=== PATIENT | female | born 2000 | race Caucasian/White ===

== ENCOUNTER 2018-06-13 18:26 | Emergency (ER) | payer MEDICAID ==
[~2018-06-13] VITALS: Ht 162.6 cm; Wt 89.3 kg
[2018-06-13 18:56] VITALS: BP 120/75
--- NOTE | 2018-06-13 19:47 | NUR ---
pt is resting quietly on gurney, waiting to be evaluated
[2018-06-13] MEDS ORDERED: AZIT250T2 PO (20:42)
[2018-06-13] MEDS ORDERED: AZIT250T PO (20:56)
== END 2018-06-13 21:06 | disposition home or self-care (01) ==
LOC: ER 18:27
DX: R05 Cough (principal); J02.9 Acute pharyngitis, unspecified; R20.8 Other disturbances of skin sensation; Z88.5 Allergy status to narcotic agent; Z91.040 Latex allergy status; Z79.2 Long term (current) use of antibiotics
CPT/HCPCS: 99283

== ENCOUNTER 2019-04-26 14:17 | Emergency (ER) | payer MEDICAID ==
[~2019-04-26] VITALS: Ht 162.6 cm; Wt 95.0 kg
[~2019-04-26 14:17] MED LIST: AZIT250T PO
[2019-04-26 14:45] VITALS: BP 128/88
[2019-04-26] MEDS ORDERED: ONDA4TAB6 PO (15:58)
[2019-04-26] MEDS ORDERED: GUAI600T45 PO (15:58)
== END 2019-04-26 16:11 | disposition home or self-care (01) ==
LOC: ER 14:18
DX: J06.9 Acute upper respiratory infection, unspecified (principal); Z88.5 Allergy status to narcotic agent; Z91.040 Latex allergy status
CPT/HCPCS: 99283

== ENCOUNTER 2025-03-01 22:41 | Emergency (ER) | payer MEDICAID ==
[~2025-03-01] VITALS: Ht 162.6 cm; Wt 76.4 kg
[~2025-03-01 22:41] MED LIST changes: +GUAI600T45 PO; +ONDA4TAB6 PO
[2025-03-01 22:42] VITALS: BP 136/94; PULSE 84; RESP 16; TEMP 98; O2SAT 99
--- NOTE | 2025-03-01 23:20 | Physician Documentation ---
History of Present Illness ~ Chief Complaint: Sore Throat Stated Complaint: THROAT PAIN Time Seen by MD: 23:19 HPI Patient presents to the emergency room with pain and swelling to her throat. She was diagnosed with strep throat in his taking antibiotics. Last time she to ok ibuprofen was two days ago Medication Reconciliation Allergies: Coded Allergies: codeine (Unverified Allergy, Unknown, 03/01/25) latex (Unverified Allergy, Unknown, 03/01/25) Scheduled Azithromycin (Zithromax), 1 DOSPAK PO UD Guaifenesin (Mucinex), 1 TAB PO Q12H Ondansetron Hcl (Zofran), 1 TAB PO Q6H Prednisone* (Prednisone*), 1 TAB PO DAILY Past Medical History Past Medical History: No Pertinent History Past Surgical History: noncontributory Drug Use: none Lives with: Family Occupation: employed Review of Systems ROS All review of systems negative except as per HPI Physical Exam Vital Signs: Temperature: 98.0, Source: Oral, Heart Rate: 84, Respiratory Rate: 16, BP: 136/94, Pulse Oximetry: 99, Weight: 76.360 Oxygen Flow Rate: 0 Physical Exam General: Patient is awake, alert, oriented x4 in no acute distress and well appearing.~ Head: Normocephalic and atraumatic. Eyes: Conjunctival normal. EOMI. PERRL. ENT: Mucous membranes moist. Pharynx widely patent with no asymmetry. No appreciable exudates. Maintaining secretions. No hot potato voice Neck: Supple, trachea is midline. Chest: Clear to auscultation bilaterally without rales, rhonchi, or wheezes. There is no accessory muscle use or retractions. Cardiac: RRR without murmurs, gallops, or rubs. Abd: Soft, nondistended, nontender, with normoactive bowel sounds. No guarding, rebound, or rigidity. Progress Results/Orders Results/Orders Orders - CISCO MARTINS MD Prednisone Tablet (Prednisone Tablet) (03/01/25 23:25) Ibuprofen Tablet (Motrin Tablet) (03/01/25 23:25) Acetaminophen 325mg Tablet (Tylenol Tabl (03/01/25 23:25) Vital Signs 03/01/25 22:42 Temp 98.0 Pulse 84 Resp 16 B/P (MAP) 136/94 Pulse Ox 99 O2 Flow Rate 0 Medical Decision Making Findings Patient presents to the emergency room for evaluation of sore throat as per HPI. Differentials include but are not limited to strep throat, peritonsillar abscess, retropharyngeal abscess. Physical exam is reassuring he had not feel imaging is necessary. I do not feel patient has any danger of airway obstruction all per void small course of steroids. Departure Disposition: HOME / SELF CARE / HOMELESS Impression: Primary Impression: Irritation of pharynx Condition: Stable Discharge Instructions: Pharyngitis Referrals: NO PRIMARY CARE PROVIDER (PCP) Prescriptions Prednisone* (Prednisone*) 20 Mg Tablet 1 TAB PO DAILY for 5 Days, #5 TAB Prov: CISCO MARTINS MD 03/01/25 Signature Scribe Signature: No scribe Attestation: The note accurately reflects work and decisions made by me.Cisco Martins MD 03/01/25 23:25 CISCO MARTINS MD Mar 01, 2025 23:20
[2025-03-01] MEDS ORDERED: PRED20TA PO (23:22)
[2025-03-01] MEDS: ibuprofen tablet 400 MG TABLET PO ONE (23:32)
== END 2025-03-01 23:41 | disposition home or self-care (01) ==
LOC: ER 22:41
DX: J39.2 Other diseases of pharynx (principal); Z91.040 Latex allergy status; Z88.5 Allergy status to narcotic agent; Z79.899 Other long term (current) drug therapy
CPT/HCPCS: 99284; J7512